=== PATIENT | female | born 1940 | race Two or more races ===

== ENCOUNTER 2023-02-23 09:56 | Inpatient (IN) | payer OTHER ==
[~2023-02-23] VITALS: Ht 152.4 cm; Wt 87.1 kg
[2023-02-23] MEDS ORDERED: SYNTHROID125 MCG PO (10:27)
[2023-02-23] MEDS ORDERED: AMLODIPINE-OLM1 EAC3 PO (10:27)
[2023-02-23] MEDS ORDERED: HYDROCHLOROTH12.5 MG PO (10:28)
[2023-02-23] MEDS ORDERED: DIOVAN320 MG PO (10:28)
[2023-02-23] MEDS ORDERED: TOPROL XL100 M1 PO (10:28)
[2023-02-23] MEDS ORDERED: JANUVIA100 MG PO (10:28)
[2023-02-23] MEDS ORDERED: ALEVE220 M1 PO (10:29)
[2023-03-02] MEDS ORDERED: AMLODIPINE BESY10 MG (15:24)
[2023-03-02] MEDS ORDERED: VALSARTAN-HCTZ1 EAC4 (15:24)
[2023-03-02] MEDS ORDERED: GLIMEPIRIDE4 M1 (15:24)
[2023-03-02] MEDS ORDERED: SIMVASTATIN20 MG (15:24)
[2023-03-04] MEDS ORDERED: VALSARTAN320 MG (07:54)
== END 2023-03-16 20:45 | disposition home or self-care (01) | DRG 291 ==
LOC: ER 09:56 → ICU-2 17:43 → ICU 02-25 20:11 → MEDJ 03-08 14:55
PROVIDERS: ADMIT Internal Medicine; ATTEND Internal Medicine
PROC: 4A12X4Z Monitoring of Cardiac Electrical Activity, External Approach (ICD-10-PCS; 2023-02-23)
PROC: BW24ZZZ Computerized Tomography (CT Scan) of Chest and Abdomen (ICD-10-PCS; 2023-02-23)
PROC: B24BYZZ Ultrasonography of Heart with Aorta using Other Contrast (ICD-10-PCS; 2023-02-23)
PROC: B54DZZZ Ultrasonography of Bilateral Lower Extremity Veins (ICD-10-PCS; 2023-02-24)
PROC: 02HV33Z Insertion of Infusion Device into Superior Vena Cava, Percutaneous Approach (ICD-10-PCS; principal; 2023-02-26)
PROC: 5A09457 Assistance with Respiratory Ventilation, 24-96 Consecutive Hours, Continuous Positive Airway Pressure (ICD-10-PCS; 2023-02-26)
PROC: 5A0945A Assistance with Respiratory Ventilation, 24-96 Consecutive Hours, High Flow/Velocity Cannula (ICD-10-PCS; 2023-03-06)
PROC: CB121ZZ Planar Nuclear Medicine Imaging of Lungs and Bronchi using Technetium 99m (Tc-99m) (ICD-10-PCS; 2023-03-07)
PROC: B54DZZZ Ultrasonography of Bilateral Lower Extremity Veins (ICD-10-PCS; 2023-03-07)
DX: I11.0 Hypertensive heart disease with heart failure (principal); I50.33 Acute on chronic diastolic (congestive) heart failure; J96.01 Acute respiratory failure with hypoxia; J96.22 Acute and chronic respiratory failure with hypercapnia; J10.00 Influenza due to other identified influenza virus with unspecified type of pneumonia; J44.1 Chronic obstructive pulmonary disease with (acute) exacerbation; J91.8 Pleural effusion in other conditions classified elsewhere; N17.9 Acute kidney failure, unspecified; E66.2 Morbid (severe) obesity with alveolar hypoventilation; J10.1 Influenza due to other identified influenza virus with other respiratory manifestations; E11.9 Type 2 diabetes mellitus without complications; J84.10 Pulmonary fibrosis, unspecified; E87.70 Fluid overload, unspecified; N28.9 Disorder of kidney and ureter, unspecified; R53.81 Other malaise; Z68.32 Body mass index [BMI] 32.0-32.9, adult